=== PATIENT | male | born 2000 | race Caucasian/White ===

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

== ENCOUNTER 2023-01-11 11:31 | Emergency (ER) | payer BC, OTHER ==
[~2023-01-11] VITALS: Ht 182.9 cm; Wt 120.4 kg
[2023-01-11] MEDS ORDERED: CLEO300C2 PO (12:43)
[2023-01-11] MEDS ORDERED: KETO10TAB PO (12:43)
[2023-01-11 12:52] VITALS: BP 138/82; TEMP 98.5; O2SAT 99
== END 2023-01-11 12:57 | disposition home or self-care (01) ==
LOC: M ED 11:31
DX: K04.7 Periapical abscess without sinus (principal); F17.210 Nicotine dependence, cigarettes, uncomplicated; Z88.0 Allergy status to penicillin